=== PATIENT | male | born 1970 | race Caucasian/White ===

== ENCOUNTER → 2017-04-30 | Day surgery (SDC) | payer OTHER ==
[~2017-04-30] VITALS: Ht 190.5 cm; Wt 108.2 kg
[~2017-04-30] MED LIST: ACETAMINOPHEN 1000 MG/100 ML 100 ML IV SCH; ALLO300T2 PO; BUPIVACAINE LIPOSOME PF 1.3% 20 ML VIAL ONE; BUPIVACAINE/EPINEPHRINE 0.25% PF 30 ML VIAL ONE; BUPIVACAINE/EPINEPHRINE 0.5% PF 30 ML VIAL ONE; CLIN300C5 PO; FOLI400T PO; KETOROLAC TROMETHAMINE 30 MG/ML (IVP) VIAL ONE; LACTATED RINGER'S 1000 ML INJ 1,000 ML ONE; LIDOCAINE 1%/EPINEPHrine 1:100,000 SOLN 50 ML VIAL ONE; LISI-519 PO; LOTR1CRE TOPICAL; METH2.5T PO; NORC5TAB PO; PRED10 PO; PROPOFOL 200 MG/20 ML AMP ONE; SODIUM CHLORIDE 0.9% 20 ML VIAL ONE; TRIA0.022 TOPICAL; ceFAZolin 2 GM PREMIX 50 ML IV SCH; oxyCODONE/ACETAMINOPHEN 5 MG/325 MG TAB ONE
[2017-04-30 10:00] VITALS: PULSE 75
[2017-04-30 12:55] VITALS: TEMP 97.5
[2017-04-30 14:05] VITALS: BP 120/81; PULSE 65; RESP 16; O2SAT 100
--- NOTE | 2017-05-01 06:53 | MP ---
cc: TIERRA BARBOUR DATE OF SURGERY 04/30/2017 PREOPERATIVE DIAGNOSIS Left inguinal hernia. POSTOPERATIVE DIAGNOSIS Left inguinal hernia. PROCEDURE Repair of left inguinal hernia with ProGrip mesh. SURGEON MD Damir ANESTHESIA Local with MAC. OPERATIVE FINDINGS The patient was found to have a virtually destroyed inguinal floor with no evidence of incarcerated viscera. There was no evidence of the indirect inguinal hernia. OPERATIVE PROCEDURE The patient was brought to the operating room and after satisfactory sedation was obtained by Anesthesia, the left groin was prepped and draped in the usual sterile fashion. Exparel was used to infiltrate the skin for local anesthesia and a transverse left inguinal incision was made, carried out sharply through the subcutaneous tissue with the cautery being is hemostasis. The incision was deepened to the external oblique fascia which was opened in the direction of its fibers down to and through the external ring. The underside of the fascia was cleaned and the spermatic cord was isolated with a [place] drain by blunt dissection. The inguinal floor was seen to be destroyed and there was attenuation of the muscles up to the internal ring. The area was completely cleaned and a portion of the properitoneal fat was placed back within the properitoneal space without problem after dissecting it free from the cord. The inguinal floor was then closed with interrupted 0 Vicryl sutures brought between the internal oblique fascia and muscle old and the shelving edge of the inguinal ligament. The suture line was carried laterally until the internal ring had been recreated as well. After checking for hemostasis which was seen to be satisfactory, a piece of ProGrip mesh was cut to the appropriate shape and secured anterior to the repair by pressing its posterior Vicryl hooks into the surrounding tissues including the pubis. The mesh was also further affixed to the pubis with a suture of 0 Prolene. Hemostasis was again checked for and found to be satisfactory. The remainder of the Exparel was infiltrated into the surrounding tissues for local anesthesia. The external oblique fascia was closed with a running 3-0 Vicryl suture. The subcutaneous tissue was closed with interrupted 3-0 Vicryl suture and the skin closed with interrupted 4-0 PDS subcuticular stitches. Steri-Strips and sterile dressing were placed and the patient was taken from the operating room, in satisfactory condition, having tolerated procedure well without problem. Estimated blood loss was less than 15 mL. The instrument, sponge and needle counts were reported as being correct x2 at the end of the procedure. MD SHERRON Shedlon/MOMO /12:49 PM /6:21 AM
== END | disposition home or self-care (01) ==
LOC: PHSDC 08:21
PROVIDERS: ATTEND Surgery
DX: K40.90 Unilateral inguinal hernia, without obstruction or gangrene, not specified as recurrent (principal); I10 Essential (primary) hypertension; G47.30 Sleep apnea, unspecified; K21.9 Gastro-esophageal reflux disease without esophagitis
CPT/HCPCS: 00830; 49505; C1781; C9290; J0131; J0690; J1885; J7120